=== PATIENT | male | born 1965 | race Caucasian/White ===

== ENCOUNTER 2017-05-17 13:45 | Emergency (ER) ==
[2017-05-17 13:50] VITALS: BP 153/95; TEMP 98.3; BMI 34.5
--- NOTE | 2017-05-17 17:23 | ED.PDOC ---
General ED Provider: Dr. 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 Sl nauseated but no emesis. Denies Diarrhea Time Seen by Physician: 18:00 Mode of Arrival: Walk-In Information Source: Patient Exam Limitations: No limitations Primary Care Provider: MAGY LANTIGUA Referred to ED by: Other (self) Nursing and Triage Documentation Reviewed and Agree: Yes Reviewed sepsis parameters & appropriate labs ordered?: Yes System Inflammatory Response Syndrome: Not Applicable Sepsis Protocol: For patient's 13 years and over: Temp is 96.8 and below OR 101 and greater Pulse >90 BPM Resp >20/minute Acutely Altered Mental Status Are patient's symptoms suggestive of a new infection, such as: -Pneumonia -Skin, Soft Tissue -Endocarditis -UTI -Bone, Joint Infection -Implantable Device -Acute Abdominal Infection -Wound Infection -Meningitis -Blood Stream Catheter Infection -Unknown System Inflammatory Response Syndrome: Not Applicable GI Complaint Exam - Abdominal Pain Complaint/Exam Onset: Sudden Duration: 12 hrs Symptoms Are: Still present Timing: Constant Initial Severity: Mild Current Severity: Moderate Location of Pain: RUQ Radiates To: Reports: Back, Flank Character: Reports: Dull, Aching, Cramping Aggravating: Reports: Movement, Deep breaths, Position Alleviating: Reports: None Related History: Reports: Similar episode AAA Risk Factors: Reports: None Cardiac Risk Factors: Reports: None Testicular Torsion Risk Factors: Reports: None Surgical Obstruction Risk Factors: Reports: None Related Surgical History: Reports: None Abdominal Findings: Present: None Differential Diagnoses: Renal Colic, Ureteral Stone Review of Systems - Review Of Systems Constitutional: Reports: No symptoms Eyes: Reports: No symptoms Ears, Nose, Mouth, Throat: Reports: No symptoms Respiratory: Reports: No symptoms Cardiac: Reports: No symptoms GI: Reports: No symptoms : Reports: No symptoms Musculoskeletal: Reports: No symptoms Skin: Reports: No symptoms Neurological: Reports: No symptoms Endocrine: Reports: No symptoms Hematologic/Lymphatic: Reports: No symptoms All Other Systems: Reviewed and Negative Past Medical History - Past Medical History Endocrine: Reports: None Cardiovascular: Reports: None Respiratory: Reports: None Hematological: Reports: None Gastrointestinal: Reports: None Genitourinary: Reports: None, Kidney stones Neuro/Psych: Reports: None Musculoskeletal: Reports: None Cancer: Reports: None - Surgical History General Surgical History: Reports: None - Family History Family History: Reports: None - Social History Smoking Status: Former smoker Hx Substance Use: No Alcohol Screening: Occasionally Physical Exam - Physical Exam Appearance: Ill-appearing Ill-appearing: Mild Pain Distress: Moderate Eyes: PRETTY, EOMI, Conjunctiva clear ENT: Ears normal, Nose normal, Oropharynx normal Neck: Supple Respiratory: Airway patent, Breath sounds clear, Breath sounds equal Cardiovascular: RRR, Pulses normal, No rub, No murmur GI/: Soft, Tender, Bowel sounds hypoactive Musculoskeletal: Normal strength, Limited ROM Skin: Warm Neurological: Sensation intact, Alert, Oriented, Disoriented Psychiatric: Affect appropriate, Mood appropriate Interpretation - Radiology Interpretation Radiology Interpretation By: Radiologist Radiology Results: Positive (2.03X1.70 cm Mass posterior Rt mid kidney) Exam Interpreted: CT Scan Re-Evaluation - Re-Evaluation Time of Re-Evaluation: 19:30 Status: Improved Vital Signs Stable: Yes Appearance: NAD Lungs: Clear Skin: Warm and Dry Neuro: Alert and Oriented X3 CV: RRR Additional Comments: Results of CT scan reviewed/needs follow up Dr Lantigua Critical Care Note - Critical Care Note Total Time (mins): 0 Course - Course Hematology/Chemistry: 05/17/17 17:30 05/17/17 17:30 Orders, Labs, Meds: Lab Review 05/17/17 05/17/17 05/17/17 13:57 17:30 17:30 WBC 8.16 RBC 5.21 Hgb 15.6 Hct 43.2 MCV 82.9 MCH 29.9 MCHC 36.1 H RDW Coeff of Huong 13.1 Plt Count 219 Immature Gran % (Auto) 0.2 Neut % (Auto) 66.2 Lymph % (Auto) 21.9 [place] % (Auto) 8.5 Eos % (Auto) 2.6 Baso % (Auto) 0.6 Immature Gran # (Auto) 0.0 Neut # 5.4 Lymph # 1.8 [place] # 0.7 Eos # 0.2 Baso # 0.1 Sodium 141 Potassium 4.1 Chloride 104 Carbon Dioxide 27 Anion Gap 14.1 BUN 17 Creatinine 0.93 Estimated GFR (MDRD) 85.00 BUN/Creatinine Ratio 18.27 Glucose 102 H Calcium 9.5 Total Bilirubin 0.7 AST 26 ALT 39 Alkaline Phosphatase 76 Total Protein 7.1 Albumin 3.9 Globulin 3.2 Albumin/Globulin Ratio 1.22 Urine Color Yellow Urine Clarity Clear Urine pH 6.0 Ur Specific [place] 1.020 Urine Protein Negative Urine Glucose (UA) Negative Urine Ketones Negative Urine Blood Negative Urine Nitrite Negative Urine Bilirubin Negative Urine Urobilinogen 0.2 Ur Leukocyte Esterase Negative Orders Category Date Time Status NPO REMINDER: IMAGING ONCE CARE 05/17/17 17:22 Completed CBC W/ AUTO DIFF Stat LAB 05/17/17 17:30 Completed CMP [COMPREHENSIVE METABOLIC PANEL] Stat LAB 05/17/17 17:30 Completed UA [URINALYSIS C & S IF INDICATED] Stat LAB 05/17/17 13:[address] ABDOMEN/PELVIS W/WO CONTRAS Stat RADS 05/17/17 17:21 Taken Vital Signs: Temp Pulse Resp BP Pulse Ox 05/17/17 13:46 98.3 F 63 16 153/95 H 97 Departure - Departure Time of Disposition: 19:40 Disposition: HOME SELF-CARE Discharge Problem: Flank pain, Right kidney mass Instructions: Flank Pain (ED) Condition: Good Pt referred to PMD for follow-up: Yes (Dr Lantigua) IPMP verified?: No Additional Instructions: Need follow up with Dr Lantigua for further evaluation /follow up MRI Scan abdomen /rt kidney Follow up here earlier prn worsening pain Allergies/Adverse Reactions: Allergies ampicillin Adverse Reaction (Verified 05/17/17 13:50) Penicillins Adverse Reaction (Verified 05/17/17 13:50) Home Medications: Ambulatory Orders Atorvastatin Calcium 1 mg PO DAILY 09/09/14 Valsartan/Hydrochlorothiazide [Valsartan-Hctz 320-25 mg Tab] 1 tab PO DAILY Febuxostat [Uloric] 40 mg PO DAILY 05/17/17 Disposition Discussed With: Patient, Family
--- NOTE | 2017-05-17 19:35 | CT ---
EXAM: CT scan of the abdomen with and without contrast History. Pain Comparison. None FINDINGS Abdomen. Images lower thorax show no pulmonary infiltrate. There is no intraperitoneal free air. No ncontrast CT shows no renal calcification. There is no cholelithiasis seen. Contrast and CT shows no hepatic mass. Liver and spleen are normal in size. There is a 1.1 cm cyst left lobe liver. No acute inflammation the pancreas. There is no cholelithiasis or biliary duct dilatation. No adrenal enlarg ement. There is a 2.03 x 1.70 cm mass posterior mid right kidney, 33 HU. THAT caliber. No abdominal adenop athy. There is no small bowel obstruction. Appendix is normal. There is diverticulosis of the rect osigmoid colon without evidence of diverticulitis. Pelvis. Moderate prostatic hypertrophy. Small fat containing left inguinal hernia. No free fluid. Skeletal structures. No acute findings. No lytic or blastic lesion is seen.. Impression 1. No bowel obstruction or inflammation. Appendix normal. Diverticulosis rectosigmoid colon withou t evidence of diverticulitis. 2. There is an unexpected finding There is an abnormal 2.03 x 1.70 cm mass, 33 HU, posterior mid rig ht kidney. This could represent a cyst with some hemorrhage or proteinaceous content although small renal cell tumor/neoplasm not excluded. Follow up CT or MRI suggested to further assess.
== END 2017-05-17 20:15 | disposition home or self-care (01) ==
LOC: ED 13:45
DX: R10.9 Unspecified abdominal pain (principal); N28.89 Other specified disorders of kidney and ureter; Z87.442 Personal history of urinary calculi
CPT/HCPCS: 36415; 80053; 81001; 85025; 99283

== ENCOUNTER 2017-05-18 09:13 | Outpatient (CLI) ==
[2017-05-17 13:50] VITALS: BMI 34.5
--- NOTE | 2017-05-18 10:15 | US ---
Exam: Retroperitoneal ultrasound HISTORY: Abnormal CT performed for pain. Posterior mid right kidney mass. Procedures: Transverse and longitudinal real time soto scale echograms and color Doppler images of t he retroperitoneum were obtained. Comparison: CT abdomen and pelvis 05/17/2017. FINDINGS: The kidneys are suboptimally visualized. The right kidney is 11.8 cm in length. The left k idney is 10.9 cm in length. There is no echogenic renal stone, hydronephrosis or apparent renal mass . The urinary bladder measures 4 cm x 3.8 cm x 2.6 cm without echogenic stone. Neither ureteral jet is visualized. There is no free fluid in the retroperitoneum. IMPRESSION: The area of interest in the right kidney is not seen on this ultrasound. Follow-up MRI o f the kidneys with and without contrast is recommended.
== END 2017-05-18 09:14 | disposition home or self-care (01) ==
LOC: RAD 09:13
PROVIDERS: ATTEND Family Medicine
DX: N28.89 Other specified disorders of kidney and ureter (principal)
CPT/HCPCS: 76770